=== PATIENT | female | born 1995 | race Caucasian/White ===

== ENCOUNTER 2019-05-06 23:47 | Emergency (ER) | payer SELFPAY ==
[~2019-05-06] VITALS: Ht 160 cm; Wt 140.6 kg
[2019-05-07 00:55] VITALS: BP 146/79
[2019-05-07] MEDS ORDERED: AZIT500T PO (01:30)
--- NOTE | 2019-05-07 01:30 | PHYS DOC ---
Past Medical History Past Medical History: No Pertinent History Past Surgical History: Cholecystectomy, Tonsillectomy Alcohol Use: Rarely Drug Use: None Adult General Chief Complaint Chief Complaint: EARACHE/EAR PAIN HPI HPI Patient is a 24 year old female who presents with right ear pain. Reports right ear pain started this evening, last week mild cough and sore throat, no fevers. No injury to the ear Tylenol [employer] H[employer], she reports she is 8 weeks . No pelvic complaints. She is resting in no distress Review of Systems Review of Systems Constitutional: Denies fever or chills [] Eyes: Denies change in visual acuity, redness, or eye pain [] HENT: Denies nasal congestion or sore throat []c/o right ear pain Respiratory: Denies cough or shortness of breath [] Cardiovascular: No additional information not addressed in HPI [] GI: Denies abdominal pain, nausea, vomiting, bloody stools or diarrhea [] : Denies dysuria or hematuria [] Musculoskeletal: Denies back pain or joint pain [] Integument: Denies rash or skin lesions [] Neurologic: Denies headache, focal weakness or sensory changes [] Endocrine: Denies polyuria or polydipsia [] All other systems were reviewed and found to be within normal limits, except as documented in this note. Current Medications Current Medications Current Medications Medications (Trade) Dose Ordered Sig/Maricarmen Start Time Stop Time Status Last Admin Dose Admin Azithromycin (Zithromax) 500 mg 1X ONCE 05/07/19 01:45 05/07/19 01:46 Allergies Allergies Allergies Coded Allergies Type Severity Reaction Last Updated Verified Penicillins Allergy Mild 05/07/19 Yes carbinoxamine Allergy Mild 05/07/19 Yes cephalexin Allergy Mild 05/07/19 Yes codeine Allergy Mild 05/07/19 Yes diphenhydramine Allergy Mild 05/07/19 Yes pseudoephedrine Allergy Mild 05/07/19 Yes Physical Exam Physical Exam Constitutional: Well developed, well nourished, no acute distress, non-toxic appearance. [] HENT: Normocephalic, atraumatic, bilateral external ears normal,right TM red and bulging, no perforation oropharynx moist, no oral exudates, nose mild congestion Eyes: PERRLA, EOMI, conjunctiva normal, no discharge. [] Neck: Normal range of motion, no tenderness, supple, no stridor. [] Cardiovascular:Heart rate regular rhythm, no murmur [] Lungs & Thorax: Bilateral breath sounds clear to auscultation [] Abdomen: Bowel sounds normal, soft, no tenderness, no masses, no pulsatile lucas s. [] Skin: Warm, dry, no erythema, no rash. [] Extremities: No tenderness, no cyanosis, no clubbing, ROM intact, no edema. [] Neurologic: Alert and oriented X 3, normal motor function, normal sensory function, no focal deficits noted. [] Psychologic: Affect normal, judgement normal, mood normal. [] Current Patient Data Vital Signs Vital Signs Date Time Temp Pulse Resp B/P (MAP) Pulse Ox O2 Delivery O2 Flow Rate FiO2 05/07/19 00:55 98.9 86 16 146/79 (101) 100 Room Air 98.9 EKG EKG [] Radiology/Procedures Radiology/Procedures [] Impressions: Right OM Course & Med Decision Making Course & Med Decision Making Pertinent Labs and Imaging studies reviewed. (See chart for details) []VSS, no fevers. right OM Due to allergies and early will treat with Zithromax Tylenol for pain Keep appointment with OB, call for follow up, educated on home care fu and reasons to return to the ER Dragzenia Disclaimer Cristo Disclaimer This electronic medical record was generated, in whole or in part, using a voice recognition dictation system. Departure Departure Impression: Primary Impression: Right otitis media Disposition: HOME, SELF-CARE Condition: STABLE Referrals: [facility] Patient Instructions: Otitis Media, Adult Additional Instructions: tylenol for pain Zithromax as prescribed Call your doctor for follow up, return for any concerns or worsening symptoms Scripts Azithromycin (ZITHROMAX) 500 Mg Tablet 1 TAB PO DAILY, #5 TAB Prov: SHANNON SMITH APRN 05/07/19 SHANNON SMITH APRN May 07, 2019 01:30
[2019-05-07] MEDS ORDERED: AZITHROMYCIN 250 MG TABLET. PO ONE (01:45)
== END 2019-05-07 01:46 | disposition home or self-care (01) ==
LOC: ER 23:47
DX: H66.91 Otitis media, unspecified, right ear (principal); Z88.0 Allergy status to penicillin; Z88.1 Allergy status to other antibiotic agents; Z88.5 Allergy status to narcotic agent; Z88.8 Allergy status to other drugs, medicaments and biological substances
CPT/HCPCS: 99283; Q0144

== ENCOUNTER 2019-10-22 23:00 | Observation (INO) | payer OTHER ==
[~2019-10-22 23:00] MED LIST: AZIT500T PO
[2019-10-22] MEDS ORDERED: IV RINGERS,LACTATED 1000ML 1,000 ML IV PRN (23:15)
[2019-10-22 23:21] LABS: BILIRUBIN,URINE NEGATIVE (NEG); CLARITY,URINE CLOUDY; COLOR,URINE YELLOW; NITRITE,URINE NEGATIVE (NEG); PROTEIN,URINE NEGATIVE (NEG-TRACE); UROBILINOGEN,URINE 0.2 mg/dL (0.2 mg/dL)
[2019-10-22 23:24] LABS: SQUAMOUS EPITHELIAL CELL,UR MANY /LPF
[2019-10-22 23:25] LABS: BACTERIA,URINE MODERATE /HPF (0-FEW); RBC,URINE 0 /HPF (0-2)
[2019-10-22 23:28] LABS: AMPHETAMINE/METHAMPHETAMINE NEG (NEG); BARBITURATES NEG (NEG); BENZODIAZEPINES NEG (NEG); CANNABINOIDS NEG (NEG); COCAINE NEG (NEG); METHADONE NEG (NEG); OPIATES NEG (NEG); PHENCYCLIDINE NEG (NEG)
== END 2019-10-23 | disposition home or self-care (01) ==
LOC: 3 SO LND 23:00
PROVIDERS: ADMIT Obstetrics & Gynecology; ATTEND Obstetrics & Gynecology
DX: O36.8130 Decreased fetal movements, third trimester, not applicable or unspecified (principal); O26.893 Other specified pregnancy related conditions, third trimester; M54.9 Dorsalgia, unspecified; Z3A.32 32 weeks gestation of pregnancy
CPT/HCPCS: 80307; 81001; 87086; G0378; G0379; 59025

== ENCOUNTER 2020-12-26 22:31 | Emergency (ER) | payer MEDICAID, OTHER ==
[~2020-12-26] VITALS: Ht 160 cm; Wt 145.4 kg
[2020-12-26] MEDS ORDERED: MECLIZINE HCL 12.5 MG TABLET. PO ONE (23:45)
[2020-12-26] MEDS ORDERED: ONDANSETRON ODT 4 MG TAB.RAPDIS. PO ONE (23:45)
--- NOTE | 2020-12-26 23:48 | ED.ADGEN ---
Past Medical History Past Medical History: No Pertinent History Past Surgical History: Cholecystectomy, Tonsillectomy Smoking Status: Never Smoker Alcohol Use: Rarely Drug Use: None General Adult EDM: Chief Complaint: DIZZY/LIGHT HEADED HPI: HPI: Patient is a 25 year old female coming in for sensation of spinning. Patient states that since she is woke up this morning she has had a sensation like she had just "got off of a tilt a while". States symptom is worse with moving her head or changing position. States the symptoms of both breast. Denies any pain in her ears, tinnitus, hearing loss. Denies any recent head injuries. History otherwise been well and does not any recent illnesses. Review of Systems: Review of Systems: All other systems within normal limits except for as noted in the HPI Current Medications: Current Medications Medications (Trade) Dose Ordered Sig/Maricarmen Start Time Stop Time Status Last Admin Dose Admin Meclizine HCl (Antivert) 25 mg 1X ONCE 12/26/20 23:45 12/26/20 23:49 DC 12/26/20 23:55 25 MG Ondansetron HCl (Zofran Odt) 4 mg 1X ONCE 12/26/20 23:45 12/26/20 23:49 DC 12/26/20 23:55 4 MG Allergies: Allergies: Allergies Coded Allergies Type Severity Reaction Last Updated Verified Penicillins Allergy Mild 05/07/19 Yes carbinoxamine Allergy Mild 05/07/19 Yes cephalexin Allergy Mild 05/07/19 Yes codeine Allergy Mild 05/07/19 Yes diphenhydramine Allergy Mild 05/07/19 Yes pseudoephedrine Allergy Mild 05/07/19 Yes Physical Exam: PE: Constitutional: Well developed, well nourished, no acute distress, non-toxic appearance. [] HENT: Normocephalic, atraumatic, bilateral external ears normal, nose normal. Large amount of cerumen in left ear, right canal impacted with cerumen Eyes: PERRLA, conjunctiva normal, no discharge. Nystagmus when looking left, extraocular was intact [] Neck: No rigidity, supple, no stridor. [] Cardiovascular: Regular rate and rhythm, brisk cap refill [] Lungs & Thorax: Non labored symmetric respirations, no tachypnea or respiratory distress [] Abdomen: Soft, nondistended. Skin: Warm, dry, no erythema, no rash. [] Back: Unremarkable Extremities: No deformities, range of motion grossly intact, no lower extremity edema [] Neurologic: Alert and oriented X 3, no focal deficits noted. No cranial nerve deficit [] Psychologic: Affect normal, judgement normal, mood normal. [] Current Patient Data: Labs: Laboratory Tests Test 12/26/20 22:42 POC Urine HCG, Qualitative Hcg negative (Negative) Vital Signs: Vital Signs Date Time Temp Pulse Resp B/P (MAP) Pulse Ox O2 Delivery O2 Flow Rate FiO2 12/26/20 23:43 98.0 94 20 142/72 (95) 98 Room Air 98.0 EKG: EKG: [] Heart Score: C/O Chest Pain: No Risk Factors: Risk Factors: DM, Current or recent (<one month) smoker, HTN, HLP, family history of CAD, obesity. Risk Scores: Score 0 - 3: 2.5% MACE over next 6 weeks - Discharge Home Score 4 - 6: 20.3% MACE over next 6 weeks - Admit for Clinical Observation Score 7 - 10: 72.7% MACE over next 6 weeks - Early Invasive Strategies Radiology/Procedures: Radiology/Procedures: Bilateral cerumen disimpaction performed with irrigation by nurse. [] Course & Med Decision Making: Course & Med Decision Making Patient stating she feels much better. Repeat exam shows normal TMs with mild erythema in the canal Cristo Disclaimer: Cristo Disclaimer: This electronic medical record was generated, in whole or in part, using a voice recognition dictation system. Departure Departure Disposition: HOME / SELF CARE / HOMELESS Condition: IMPROVED Referrals: NO PCP (PCP) Patient Instructions: Cerumen Impaction Scripts Meclizine Hcl (MECLIZINE HCL) 25 Mg Tablet 1 TAB PO TID for dizziness for 5 Days, #15 TAB Prov: TA DEWEY MD 12/27/20 TA DEWEY MD December 26, 2020 23:48
[2020-12-27] MEDS ORDERED: MECL-75 PO (00:34)
[2020-12-27 00:45] VITALS: BP 156/80
== END 2020-12-27 00:46 | disposition home or self-care (01) ==
LOC: ER 22:31
DX: H61.23 Impacted cerumen, bilateral (principal); Z88.0 Allergy status to penicillin; Z88.1 Allergy status to other antibiotic agents; Z88.5 Allergy status to narcotic agent; Z88.8 Allergy status to other drugs, medicaments and biological substances
CPT/HCPCS: 69209; 81025; 99283; J8597